=== PATIENT | male | born 1975 | race Caucasian/White ===

== ENCOUNTER → 2022-03-05 | Outpatient (CLI) | payer BC, SELFPAY ==
--- NOTE | 2022-03-05 09:37 | RAD_ITS ---
STUDY: AIR-CONTRAST BARIUM ESOPHAGRAM REASON FOR EXAM: Male, 47 years old. DYSPHAGIA, food sticking RADIATION DOSAGE (If Supplied By Facility): CTDIvol = ( ) mGy, DLP = ( ) mGycm. Individualized dose optimization techniques were used for this CT.? FLUOROSCOPY TIME (if supplied): ( 1:17 ) minutes/seconds 16 fluoroscopic images obtained TECHNIQUE: Air-contrast COMPARISON: None. FINDINGS: Swallowing was initiated normally. No evidence of nasopharyngeal reflux or aspiration. No Zenker''s diverticulum noted on the lateral views. Normal peristaltic activity noted in the proximal mid and distal esophagus. There was evidence of GE reflux but no evidence of a hiatal hernia. A 13 mm barium pill passed through the esophagus without difficulty. RAD/Esophagus Dual Contrast IMPRESSION: GE reflux Electronically Signed: Brown Penaloza MD at 10:30 EDT ,
== END | disposition home or self-care (01) ==
LOC: RAD 09:36
PROVIDERS: PCP Internal Medicine; Referring Provider Internal Medicine Gastroenterology; Visit Provider Internal Medicine Gastroenterology
DX: R13.10 Dysphagia, unspecified (principal)
CPT/HCPCS: 74221

== ENCOUNTER → 2024-06-12 | Outpatient (CLI) | payer BC, SELFPAY ==
--- NOTE | 2024-06-12 09:51 | NM_ITS ---
PROCEDURE: HEPATOBILLIARY IMG W/PHARM INT REASON FOR EXAM: Abdominal pain. TECHNIQUE: Hepatobiliary planar imaging of the abdomen. RADIOPHARMACEUTICAL: 5.5 mCi of mebrofenin. CCK was administered COMPARISON: None. FINDINGS: There is good uptake of the radiopharmaceutical by the liver. Normal gallbladder visualization with the gallbladder identified by 45 minutes. The bowel is visualized at 30 minutes. No significant gallbladder emptying at 31 minutes (this study was not continued to 60 minutes). NM/Hepatobilliary Img w/Pharm Int IMPRESSION: No evidence of acute cholecystitis or common bile duct obstruction. Delayed gallbladder emptying at 31 minutes which may suggest biliary dyskinesia . Reading Location: [id number]
== END | disposition home or self-care (01) ==
PROVIDERS: PCP Internal Medicine; Referring Provider Internal Medicine Gastroenterology; Visit Provider Internal Medicine Gastroenterology
DX: R10.11 Right upper quadrant pain (principal); K21.9 Gastro-esophageal reflux disease without esophagitis; K80.20 Calculus of gallbladder without cholecystitis without obstruction
CPT/HCPCS: 78227; A9537; J2805